=== PATIENT | female | born 1955 | race Caucasian/White ===

== ENCOUNTER 2018-07-04 09:52 | Emergency (ER) | payer OTHER ==
[~2018-07-04] VITALS: Ht 165.1 cm; Wt 65.9 kg
[2018-07-04 09:58] VITALS: BP 130/83
[2018-07-04] MEDS ORDERED: dexamethasone sod phosphate 10mg/ml inj PO STA (10:45)
[2018-07-04] MEDS ORDERED: PRED10TA23 PO (10:58)
== END 2018-07-04 11:05 | disposition home or self-care (01) ==
LOC: ER 09:53
DX: L23.7 Allergic contact dermatitis due to plants, except food (principal); Z79.899 Other long term (current) drug therapy
CPT/HCPCS: 99283; J1100